=== PATIENT | female | born 1930 | race Caucasian/White ===

== ENCOUNTER 2020-07-21 11:01 | Observation (INO) | payer MEDICARE, OTHER ==
[2020-07-20 11:05] VITALS: BMI 20.5
[2020-07-21] MEDS ORDERED: PHENYLEPHRINE-NS 100 MCG/ML 10 ML SYRINGE ONE (11:08)
[2020-07-21] MEDS ORDERED: Ondansetron PF 4 MG/2 ML Vial ONE (11:08)
[2020-07-21] MEDS ORDERED: Dexamethasone 20 MG/5 ML VIAL ONE (11:08)
[2020-07-21] MEDS ORDERED: Rocuronium Bromide 10 MG/ML (10ML VIAL) ONE (11:08)
[2020-07-21] MEDS ORDERED: ePHEDrine 50 MG/ML VIAL ONE (11:08)
[2020-07-21] MEDS ORDERED: Lidocaine 1% PF 5 ML VIAL ONE (11:08)
[2020-07-21] MEDS ORDERED: PROPOFOL 200 MG/20 ML VIAL ONE (11:08)
[2020-07-21 12:03] LABS: Hemoglobin 12.9 g/dL (12.0-16.0)
[2020-07-21] MEDS ORDERED: Fentanyl 100 MCG/2 ML VIAL ONE ×2 (12:19→14:13)
[2020-07-21 12:29] LABS: Anion Gap 12 mmol/L (10-20); BUN (Urea Nitrogen) 14 mg/dL (9.8-20.1); Calc. Creatinine Clearance 46 mL/min (70-130); Calcium 9.4 mg/dL (7.8-10.44); Carbon Dioxide 27 mmol/L (23-31); Chloride 105 mmol/L (98-107); Glucose 99 mg/dL (83-110); Potassium 4.2 mmol/L (3.5-5.1); Sodium 140 mmol/L (136-145)
[2020-07-21] MEDS ORDERED: Bacitracin 1 PK TOP PRN (14:47)
[2020-07-21] MEDS ORDERED: HYDROcodone/Acetaminophen 5/325 mg Tablet PO PRN (14:48)
[2020-07-21] MEDS ORDERED: Ondansetron PF 4 MG/2 ML Vial IVP PRN (14:49)
[2020-07-21] MEDS ORDERED: Morphine 2 MG/ML VIAL SLOW IVP PRN (14:50)
[2020-07-21] MEDS ORDERED: Non-Formulary Medication 1 EACH PO PRN (14:52)
[2020-07-21] MEDS ORDERED: Promethazine HCl 25 MG/ML VIAL IM/IV PRN (15:00)
[2020-07-21] MEDS ORDERED: Morphine Sulfate 2 MG/ML SYRINGE SLOW IVP PRN (15:00)
[2020-07-21] MEDS ORDERED: Ondansetron HCl/PF 4 MG/2 ML Vial IVP PRN (15:00)
--- NOTE | 2020-07-21 15:26 | OP ---
DATE OF PROCEDURE: 07/21/2020 PREOPERATIVE DIAGNOSES: 1. Left thyroid mass. 2. Dysphagia. POSTOPERATIVE DIAGNOSES: 1. Left thyroid mass. 2. Dysphagia. PROCEDURE PERFORMED: Left thyroidectomy with intraoperative laryngeal nerve monitor. ESTIMATED BLOOD LOSS: Less than 20 mL. COMPLICATIONS: None. ANESTHESIA: GETA. DESCRIPTION OF PROCEDURE: The patient was taken to the operating room and placed supine on the table. General endotracheal anesthesia was obtained by the anesthesia staff. Tube was secured in the left lower lip. A shoulder roll was placed and the intraoperative laryngeal nerve monitor was confirmed to be between the vocal cords and the tube was secured. Following this, the patient was prepped and draped in standard surgical fashion. 6 mL of 1% lidocaine with 1:100,000 epinephrine was injected into the skin crease approximately 2 cm above the clavicle. An incision was made with a 15 blade through skin and subcutaneous tissue and the platysmal layer. Subplatysmal flaps were elevated superiorly and inferiorly. Following this, the strap muscles were identified and were in the midline. A large thyroid mass was immediately encountered, stayed immediately adjacent to the capsule. The left thyroid lobe was freed from its attachments. Middle thyroid vein was suture ligated. Following this, the gland was displaced inferiorly and the superior thyroid vascular pedicle was suture ligated immediately adjacent to the gland. Following this, the gland was allowed to be mobilized and displaced anteriorly. The recurrent laryngeal nerve was identified and the inferior thyroid artery was suture ligated immediately adjacent to the thyroid gland. Following this, the gland was further displaced anteriorly and the attachments of the gland to the trachea were ligated. 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 The procedure was then ended. The wound was irrigated. Hemostasis was obtained. Strap muscles were closed in the midline. A drain was placed and the platysmal layer and subcuticular layers were closed using Monocryl stitches. Dermabond was placed on the skin. The patient tolerated the procedure well. Job ID: [id number]
[2020-07-21] MEDS: Sodium Chloride 0.45% 1,000 ML IV SCH (17:12)
[2020-07-21] MEDS ORDERED: CEFAZOLIN 1 GM in Sodium Chloride 0.9% 100 ML IVPB SCH (21:00)
[2020-07-21] MEDS ORDERED: chlordiazePOXIDE/Clidinium Bromide Capsule PO SCH (21:00)
[2020-07-21] MEDS: Acetaminophen 500 MG TAB PO SCH (21:23)
[2020-07-21] MEDS: ceFAZolin 1 GM/D5W 1 GM in Premix Bag 1 BAG IVPB SCH (21:26)
[2020-07-22] MEDS: ceFAZolin 1 GM/D5W 1 GM in Premix Bag 1 BAG IVPB SCH (05:24)
[2020-07-22] MEDS: Sodium Chloride 0.45% 1,000 ML IV SCH ×2 (05:26→07:57)
[2020-07-22] MEDS: Acetaminophen 500 MG TAB PO SCH (07:57)
[2020-07-22] MEDS ORDERED: Floranex Packet PO SCH (09:00)
[2020-07-22] MEDS ORDERED: Calcium Carbonate + Vit D 250 MG TAB PO SCH (09:00)
[2020-07-22 11:56] VITALS: BP 111/55; TEMP 98.4
== END 2020-07-22 13:53 | disposition home or self-care (01) ==
LOC: SDC 11:01 → 3SE 14:20
PROVIDERS: ADMIT Otolaryngology Plastic Surgery within the Head & Neck; ATTEND Otolaryngology Plastic Surgery within the Head & Neck
PROC: 0GTG0ZZ Resection of Left Thyroid Gland Lobe, Open Approach (ICD-10-PCS; principal; 2020-07-21)
DX: C73 Malignant neoplasm of thyroid gland (principal); I10 Essential (primary) hypertension; M19.90 Unspecified osteoarthritis, unspecified site; K21.9 Gastro-esophageal reflux disease without esophagitis; Z79.899 Other long term (current) drug therapy; Z88.7 Allergy status to serum and vaccine; Z88.8 Allergy status to other drugs, medicaments and biological substances
CPT/HCPCS: 60220; 80048; 85014; 85018; 88307; 88331; 88334; 93005; 96365; 96366; G0378 ×2; 36415; 93010; J0690; J1100; J2405; J2704; J3010; J3490

== ENCOUNTER 2020-10-06 06:23 | Observation (INO) | payer MEDICARE, OTHER ==
[2020-10-06] MEDS ORDERED: Lidocaine 1% w/Epinephrine 1:100K 20 ML VIAL ONE (06:43)
[2020-10-06 07:04] LABS: Hemoglobin 13.1 g/dL (12.0-16.0)
[2020-10-06] MEDS ORDERED: Fentanyl 100 MCG/2 ML VIAL ONE ×3 (07:06→11:52)
[2020-10-06 07:22] LABS: Anion Gap 16 mmol/L (10-20); BUN (Urea Nitrogen) 19 mg/dL (9.8-20.1); Calc. Creatinine Clearance 45 mL/min (70-130); Calcium 9.8 mg/dL (7.8-10.44); Carbon Dioxide 21 mmol/L (23-31); Chloride 108 mmol/L (98-107); Glucose 107 mg/dL (83-110); Potassium 4.1 mmol/L (3.5-5.1); Sodium 141 mmol/L (136-145)
[2020-10-06] MEDS ORDERED: Promethazine HCl 25 MG/ML VIAL SLOW IVP PRN (08:32)
[2020-10-06] MEDS ORDERED: Ondansetron HCl/PF 4 MG/2 ML Vial IVP PRN (08:32)
[2020-10-06] MEDS ORDERED: Promethazine HCl 25 MG/ML VIAL IM PRN (08:32)
[2020-10-06] MEDS ORDERED: PHENYLEPHRINE-NS 100 MCG/ML 10 ML SYRINGE ONE (10:09)
[2020-10-06] MEDS ORDERED: Ondansetron PF 4 MG/2 ML Vial ONE (10:09)
[2020-10-06] MEDS ORDERED: ePHEDrine 50 MG/ML VIAL ONE (10:09)
[2020-10-06] MEDS ORDERED: Rocuronium Bromide 10 MG/ML (10ML VIAL) ONE (10:09)
[2020-10-06] MEDS ORDERED: Succinylcholine 200 MG/10 ml SYRINGE FS ONE (10:09)
[2020-10-06] MEDS ORDERED: Lidocaine 1% PF 5 ML VIAL ONE (10:09)
[2020-10-06] MEDS ORDERED: PROPOFOL 200 MG/20 ML VIAL ONE (10:09)
[2020-10-06] MEDS ORDERED: Hydrocodone-Acetamin 15 ML UDCUP PO PRN ×2 (10:31→15:17)
[2020-10-06] MEDS ORDERED: Ondansetron PF 4 MG/2 ML Vial IVP PRN (10:32)
[2020-10-06] MEDS: Sodium Chloride 0.45% 1,000 ML IV SCH ×2 (11:05→20:49)
[2020-10-06] MEDS ORDERED: Bacitracin 1 PK TOP PRN (15:17)
[2020-10-06] MEDS: Gabapentin 100 MG CAP PO SCH ×2 (15:39→20:47)
[2020-10-06] MEDS: Acetaminophen 500 MG TAB PO SCH ×2 (15:42→20:48)
[2020-10-06 16:34] VITALS: BMI 20.9
[2020-10-06] MEDS: ceFAZolin 1 GM/D5W 1 GM in Premix Bag 1 BAG IVPB SCH (18:23)
[2020-10-06] MEDS ORDERED: Dicyclomine 20 MG TAB PO SCH (21:00)
[2020-10-07] MEDS: ceFAZolin 1 GM/D5W 1 GM in Premix Bag 1 BAG IVPB SCH ×2 (01:25→09:49)
--- NOTE | 2020-10-07 07:04 | OP ---
DATE OF PROCEDURE: 10/06/2020 PREOPERATIVE DIAGNOSES: 1. Hurthle cell thyroid carcinoma. 2. Dysphagia. POSTOPERATIVE DIAGNOSES: 1. Hurthle cell thyroid carcinoma. 2. Dysphagia. PROCEDURES PERFORMED: 1. Right thyroidectomy for completion thyroidectomy. 2. Intraoperative laryngeal nerve monitor. ESTIMATED BLOOD LOSS: 20 mL. COMPLICATIONS: None. ANESTHESIA: GETA. DESCRIPTION OF PROCEDURE: The patient was taken to the operating room and placed supine on the table. General endotracheal anesthesia was obtained by the Anesthesia Staff with the laryngeal nerve electrodes were noted to be between the vocal cords by direct visualization. Following this, tube was secured to the upper lip in the midline and the patient was prepped and draped for standard surgical procedure. 5 mL of 1% lidocaine with 1:100,000 epinephrine was injected into a tameka-shaped area overlying the thyroid gland and involving the previous incision. Following this, a 15 blade was made through the previous incision on the left side of the neck and it was extended over to the right side approximately 2 to 3 cm. Subplatysmal flaps were then elevated superiorly to the level of thyroid notch and inferiorly to the clavicles. Following this, the strap muscles, which had been reapproximated significant amount of scar tissue and they were in the midline. Once again, the right thyroid capsule was immediately encountered and dissection was carried down this area. 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 It was approximately 8 cm in length and careful dissection around the capsule of the thyroid gland allowed for removal of this large right substernal thyroid component of her right thyroid. The right recurrent laryngeal nerve was identified and protected as well as the inferior and superior parathyroids on this right side. The right inferior thyroid artery was suture ligated and the superior vascular thyroid pedicle was suture ligated immediately adjacent to the thyroid capsule. Following this, wound was irrigated. A drain was placed and Monocryl stitches were used to reapproximate the strap muscles as well as the platysmal layer. Monocryl stitch was also used to close the subcuticular layer and Dermabond was placed on the skin. The patient tolerated the procedure well. Job ID: [id number]
[2020-10-07] MEDS: Gabapentin 100 MG CAP PO SCH (08:31)
[2020-10-07] MEDS: Acetaminophen 500 MG TAB PO SCH (08:32)
[2020-10-07] MEDS: Sodium Chloride 0.45% 1,000 ML IV SCH (08:35)
[2020-10-07] MEDS ORDERED: Cholecalciferol 1,000 UNITS (25 MCG) TAB PO SCH (09:00)
[2020-10-07] MEDS ORDERED: Cyanocobalamin (Vitamin B-12) 1,000 MCG TAB PO SCH (09:00)
[2020-10-07] MEDS ORDERED: FLU VACC QS2020-21(65YR UP)/PF 240 MCG/0.7 ML SYRINGE IM ONE (09:00)
[2020-10-07] MEDS ORDERED: Calcium Carbonate 600 MG + Vit D TAB PO SCH (09:00)
[2020-10-07 13:49] VITALS: BP 168/74; TEMP 97.6
== END 2020-10-07 13:41 | disposition home or self-care (01) ==
LOC: SDC 06:23 → T4-A 09:51
PROVIDERS: ADMIT Otolaryngology Plastic Surgery within the Head & Neck; ATTEND Otolaryngology Plastic Surgery within the Head & Neck
PROC: 0GTK0ZZ Resection of Thyroid Gland, Open Approach (ICD-10-PCS; principal; 2020-10-06)
DX: C73 Malignant neoplasm of thyroid gland (principal); E04.9 Nontoxic goiter, unspecified; E89.0 Postprocedural hypothyroidism; Z79.899 Other long term (current) drug therapy; Z88.6 Allergy status to analgesic agent; Z88.8 Allergy status to other drugs, medicaments and biological substances
CPT/HCPCS: 36415; 80048; 83970; 85014; 85018; 88307; 93005; 93010; 96365; 96376; G0378; J0690; J2405; J2704; J3010; J3490